=== PATIENT | female | born 1990 ===

== ENCOUNTER 2016-11-06 19:50 | Emergency (ER) | payer SELFPAY ==
[2016-11-06 19:50] VITALS: BMI 24.7
[2016-11-06 20:15] VITALS: RESP 16; O2SAT 100
--- NOTE | 2016-11-06 20:37 | C.PDOC ---
History Of Present Illness 26 year old pt presents to the ED with c/o general myalgia, nausea, malaise, and a subjective fever since yesterday. Pt reports taking tylenol prior to arrival. Pt denies focal pain, vomiting, diarrhea, dizziness, SOB, dysuria, vaginal discharge, or any other complaints. GEN MYALGIA, NAUSEA, MALAISE, SUBJ FEVER SINCE YEST. S/P [employer]. NO FOCAL PAIN. EXAM MILD DIST NONTOXIC LUNGS CLEAR ABD NEG SKIN WARM GOOD TURGOR REMAINDER NEG Time Seen by Provider: 11/06/16 20:22 Chief Complaint (Nursing): Flu-like Symptoms History Per: Patient History/Exam Limitations: no limitations Onset/Duration Of Symptoms: Days Current Symptoms Are (Timing): Still Present Associated Symptoms: Fever (subjective fever), Myalgias, Nausea. denies: Diarrhea Severity: Mild Past Medical History Reviewed: Historical Data, Nursing Documentation, Vital Signs Vital Signs: Last Vital Signs Temp 97.9 F 11/06/16 22:14 Pulse 78 11/06/16 22:14 Resp 16 11/06/16 22:14 BP 101/51 L 11/06/16 22:14 Pulse Ox 100 11/09/16 07:59 - Medical History PMH: Anemia, Asthma (per old record but pt denies), Depression (no meds), HTN Denies: Chronic Kidney Disease Surgical History: Denies: CABG - [facility] Procedures PACKED CELL TRANSFUSION (02/01/15) PSYCHIA INTERV/EVAL NEC (02/09/15) Family History: States: Unknown Family Hx - Social History Hx Tobacco Use: No Hx Alcohol Use: No Hx Substance Use: No - Immunization History Hx Tetanus Toxoid Vaccination: No Hx Influenza Vaccination: Yes Hx Pneumococcal Vaccination: No Review Of Systems Except As Marked, All Systems Reviewed And Found Negative. Constitutional: Positive for: Fever (subjective) Respiratory: Negative for: Shortness of Breath Gastrointestinal: Positive for: Nausea. Negative for: Vomiting, Diarrhea Genitourinary: Negative for: Dysuria, Vaginal Discharge Neurological: Negative for: Dizziness Physical Exam - Physical Exam Appears: Non-toxic, In Acute Distress (Mild distress) Skin: Warm, Dry Head: Atraumatic, Normacephalic Eye(s): bilateral: Normal Inspection Chest: Symmetrical Cardiovascular: Rhythm Regular, No Murmur Respiratory: Normal Breath Sounds, No Rales, No Rhonchi, No Wheezing Gastrointestinal/Abdominal: Soft, No Tenderness, No Guarding, No Rebound Neurological/Psych: Oriented x3, Normal Speech, Normal Cognition, Other (No focal deficit) ED Course And Treatment O2 Sat by Pulse Oximetry: 100 (Room air) Pulse Ox Interpretation: Normal Medical Decision Making Medical Decision Making: Plans: -IV fluids -Zofran -Toradol -Reassess and disposition Disposition Counseled Patient/Family Regarding: Studies Performed, Diagnosis, Need For Followup - Disposition Disposition: HOME/ ROUTINE Disposition Time: 22:15 Condition: IMPROVED - Clinical Impression Clinical Impression: Influenza-like illness - Scribe Statement The provider has reviewed the documentation as recorded by the Scribe Carina harrison All medical record entries made by the Scribe were at my direction and personally dictated by me. I have reviewed the chart and agree that the record accurately reflects my personal performance of the history, physical exam, medical decision making, and the department course for this patient. I have also personally directed, reviewed, and agree with the discharge instructions and disposition. Addendum Addendum: 11/09/16 07:58 SEE DOWNTIME CHART FOR FURTHER DETAILS
[2016-11-06] MEDS ORDERED: Sodium Chloride 0.9% 1,000 ML ONE (20:55)
[2016-11-06] MEDS ORDERED: Sodium Chloride 0.9% 1,000 ML IV ONE (21:02)
[2016-11-07 04:42] VITALS: BP 101/51; PULSE 78; TEMP 97.9
== END 2016-11-06 22:14 | disposition home or self-care (01) ==
LOC: C.ER 19:50
DX: J11.1 Influenza due to unidentified influenza virus with other respiratory manifestations (principal)
CPT/HCPCS: 96361; 96374; 96375; 99283; J1885; J2405; J7040